=== PATIENT | male | born 1940 | race Caucasian/White ===

== ENCOUNTER 2017-01-07 11:00 | Inpatient (IN) | payer MEDICARE, BC ==
[~2017-01-07] VITALS: Ht 182.9 cm; Wt 102.5 kg
--- NOTE | ~2017-01-07 | DS ---
PATIENT'S NAME: MATIAS ARCE [facility] AGE: 76 Y [address] ROOM: [place] [address] LOCATION: N ADMIT DATE: 01/21/2017 Discharge Summary DISCHARGE DATE: 01/23/2017 FAMILY PHYSICIAN: Yan Oneal MD ATTENDING PHYSICIAN: Sergei Segovia PRIMARY DIAGNOSIS: Degenerative joint disease of the left knee. SECONDARY DIAGNOSIS: 1. History of deep venous thrombosis. 2. Hyperlipidemia. 3. Hyperthyroidism. 4. Benign prostatic hypertrophy. 5. Hypertension. PROCEDURE PERFORMED: Left total knee arthroplasty. HISTORY: The patient is a 76-year-old male, who presents with advanced left knee degenerative joint disease and associated severely compromised activities of daily living. The patient has decided to proceed with total knee arthroplasty after having been thoroughly counseled regarding the risks, benefits, limitations and alternatives. Please refer to the outpatient clinic notes and admission history and physical for this patient. HOSPITAL COURSE: The patient underwent a left total knee arthroplasty on 01/21/2017 without complications. Spinal anesthesia plus adductor canal block plus periarticular local anesthesia was utilized. The patient received 24 hours of perioperative prophylactic antibiotics and remained hemodynamically stable, neurovascularly intact throughout the entire hospital course. The postoperative prophylactic deep venous thrombosis prophylaxis consisted of Xarelto, early mobilization and pneumatic compression devices. Daily physical therapy for gait training, transfer training range of motion and quadriceps isometric exercises were received. The patient progressed well in physical therapy. On the date of discharge, 01/23/2017, the incision at the knee was healing well and showed no signs of infection. DISPOSITION: Home. DISCHARGE ACTIVITY: The patient is to bear weight as tolerated with range of motion and quadriceps isometric exercises as instructed. The operative extremity is to be elevated at least 90% of the day. There is to be sterile 4x4 gauze dressings to the incision daily. Dr. Segovia is to be notified immediately if there is any increased pain, fevers, chills erythema or drainage. PATIENT'S NAME: MATIAS ARCE [facility] AGE: 76 Y [address] ROOM: [place] [address] LOCATION: G3N ADMIT DATE: 01/21/2017 Discharge Summary DISCHARGE DATE: 01/23/2017 FAMILY PHYSICIAN: Yan Oneal MD ATTENDING PHYSICIAN: Sergei Segovia DISCHARGE MEDICATIONS: 1. Xarelto 10 mg 1 tablet p.o. daily x30 days for postoperative DVT prophylaxis and previous history DVT. 2. Hydromorphone 2 mg 1 to 2 tablets p.o. every 4 hours p.r.n. for pain. 3. Celebrex 200 mg 1 tab p.o. every day x7 days for pain. 4. Gabapentin 300 mg 1 tab p.o. every night x7 days for pain. 5. He is then instructed to continue all his other preadmission medications as instructed by his internal medicine doctor. FOLLOWUP: Followup appointment is to be with Dr. Segovia's office on 01/28/2017 for initial postoperative evaluation with x-rays of left knee and staple removal. RADHA ISLAS PA-C FOR MD ALPESH HAMMOND/grecial /[id number] d: 02/04/17 1054 t: 02/04/17 1120, DISCHARGE SUMMARY
--- NOTE | ~2017-01-07 | OR ---
PATIENT'S NAME: MATIAS SEGURA [facility] AGE: 76 Y [address] ROOM: [place] [address] LOCATION: [facility] ADMIT DATE: 01/21/2017 OR/Procedure Report DISCHARGE DATE: FAMILY PHYSICIAN: ANAMARIA SCHULTE MD ATTENDING PHYSICIAN: JESSICA BERRY SURGEON: Jessica Berry MD PUNCH PRESS OPERATOR: 1. MILO Odell. 2. Jessica Hernandez. DATE OF PROCEDURE: 01/21/2017 PREOPERATIVE DIAGNOSIS: Degenerative joint disease, left knee. POSTOPERATIVE DIAGNOSIS: Degenerative joint disease, left knee. OPERATION: Left total knee arthroplasty with computer navigation. ANESTHESIA: Spinal anesthesia plus adductor canal block plus periarticular local anesthesia (ropivacaine with epinephrine and Toradol). ESTIMATED BLOOD LOSS: Less than 10 mL. DRAIN: None. SPECIMEN: None. COMPLICATIONS: None. IMPLANT SYSTEM: [place] Triathlon. 1. Size 7 left posterior stabilized femoral component. 2. Size 6 universal modular tibial baseplate. 3. An 11 mm posterior stabilized size 6 X3 tibial polyethylene insert. 4. A 35 mm oval X3 patella component. INDICATIONS FOR SURGERY: Mr. Matias Segura is a 76-year-old male who presents with advanced left knee degenerative joint disease and associated severely compromised activities of daily living. The patient has decided to proceed with knee replacement after having been thoroughly counseled regarding the associated risks, benefits, and limitations. We have specifically reviewed the risks and implications of infection, deep venous thrombosis, pulmonary embolism, mortality, neurovascular complications, blood transfusion (and associated potential for disease transmission or transfusion reaction), stiffness, instability, mechanical deterioration of the components (due to wear and or loosening), and the potential need for revision. We have also emphasized the importance of active involvement and compliance with post- operative physical therapy as a means of optimizing range of motion and PATIENT'S NAME: MATIAS SEGURA [facility] AGE: 76 Y [address] ROOM: [place] [address] LOCATION: [facility] ADMIT DATE: 01/21/2017 OR/Procedure Report DISCHARGE DATE: FAMILY PHYSICIAN: ANAMARIA SCHULTE MD ATTENDING PHYSICIAN: JESSICA BERRY functional recovery. Informed consent has been granted. DESCRIPTION OF PROCEDURE: The patient was positioned supine after administration of anesthesia and prophylactic antibiotics. A well-padded pneumatic tourniquet was placed around the left proximal thigh, and the left lower extremity was prepped and draped with vigilant sterile technique. The patient's name as well as the intended operative side and procedure were confirmed with a verbal time-out involving myself, the circulating nurse, the scrub nurse, and the anesthesiologist. Examination under anesthesia demonstrated a large effusion. There were no active skin lesions or masses. There was no erythema. There was no abnormal warmth. There were no significant preexisting scars. Range of motion under anesthesia was from a 10 degree flexion contracture to 125 degrees of flexion. There was no ligamentous insufficiency. The left lower extremity was elevated and exsanguinated with an Esmarch wrap, and the pneumatic tourniquet was inflated to 300mmHg. The knee was approached through a longitudinal midline incision. A medial parapatellar arthrotomy was performed and the patella was everted. Examination of the joint space demonstrated a large effusion consisting of benign-appearing translucent synovial fluid. There were no loose bodies. There was no synovitis. The cruciate ligaments were intact. There was full-thickness loss of articular cartilage throughout the medial femoral condyle and the majority of the medial tibial plateau. There were large osteophytes at the medial femoral condyle and medial tibial plateau. There was a small osteophyte at the lateral femoral condyle. There were mild grade 3 degenerative changes at the medial half of the lateral tibial plateau and deep fissuring at the medial aspect of the lateral tibial plateau. There was a small osteophyte at the lateral tibial plateau. There was a large osteophyte at the medial aspect of the femoral trochlea. There was a 1 cm diameter region of full-thickness articular cartilage loss at the superior aspect of the femoral trochlea. There was a 1 cm region of full-thickness articular cartilage loss at the apex of the patella. There were moderate-sized osteophytes at the superior and inferior margins of the patella. There was moderate inner perimeter tearing at the medial meniscus. There was mild inner perimeter tearing at the lateral meniscus. Remnants of the menisci and cruciate ligaments were excised. The [employer] navigation femoral tracker was pinned in place at the distal aspect of the femoral trochlea. Absence of motion between the femur and the tracking device was confirmed manually and visually. Femoral osseous landmarks were obtained in order to calibrate the computer navigation system. Landmarks included the center of rotation of the ipsilateral hip, the center-point of PATIENT'S NAME: MATIAS SEGURA [facility] AGE: 76 Y [address] ROOM: [id number] [place], [place] [address] LOCATION: [facility] ADMIT DATE: 01/21/2017 OR/Procedure Report DISCHARGE DATE: FAMILY PHYSICIAN: ANAMARIA SCHULTE MD ATTENDING PHYSICIAN: JESSICA BERRY the distal femur, the femoral AP axis, 57 points on the medial femoral condyle articular surface, and 57 points on the lateral femoral condyle articular surface. The [employer] computer navigation system was subsequently utilized to position the distal femoral resection block such that the distal femoral resection was performed perfectly perpendicular to the femoral mechanical axis. The distal femoral resection was performed with a [employer] oscillating saw. The [employer] computer navigation tibial tracker was pinned in place at the anterior aspect of the tibial plateau. Absence of motion between the tibia and the tracking device was confirmed manually and visually. Tibial osseous landmarks were obtained in order to calibrate the computer navigation system. Landmarks included the center-point of the tibial plateau, the AP tibial axis, 57 points on the medial tibial plateau articular surface, 57 points on the lateral tibial plateau articular surface, the medial malleolus, and the lateral malleolus. The [employer] computer navigation system was subsequently utilized to position the proximal tibial resection block such that the proximal tibial resection was performed perfectly perpendicular to the tibial mechanical axis. The proximal tibial resection was performed with a [employer] Precision oscillating saw. Perpendicularity of the tibial resection with respect to the tibial shaft axis was reconfirmed by inserting a spacer- block attached to an extramedullary guide milind. External rotation of the anterior and posterior femoral resections was set parallel to the epicondylar axis and carefully adjusted in order to create a rectangular flexion gap. The box resection was performed with a reciprocating saw. Anterior and posterior chamfer resections were performed with the oscillating saw. Posterior condyle osteophytes were excised with an osteotome. All other osteophytes were excised with a rongeur. Resection of all remnants of the menisci was reconfirmed. Flexion and extension gaps were confirmed to be symmetric and well balanced with a spacer-block technique. The patella resection was performed with an oscillating saw such that the composite thickness of the reconstructed patella was equivalent to the thickness of the nez perce patella. Patella tracking was optimal, and there was no need for a lateral retinacular release. All trial components were removed and all prepared osseous surfaces were thoroughly irrigated with pulsatile saline lavage and dried prior to cementing all three components in a single stage using [place] Simplex cement containing pre-mixed tobramycin. All extruded excess cement was removed. The entire joint space was thoroughly inspected and thoroughly irrigated with bacteriostatic pulsatile saline lavage to assure that there was no residual debris of any sort. PATIENT'S NAME: MATIAS SEGURA [facility] AGE: 76 Y [address] ROOM: [place] [address] LOCATION: [facility] ADMIT DATE: 01/21/2017 OR/Procedure Report DISCHARGE DATE: FAMILY PHYSICIAN: ANAMARIA SCHULTE MD ATTENDING PHYSICIAN: JESSICA BERRY Final range of motion was from full extension (with no passive hyperextension) to 130 degrees of flexion. Patella tracking was reconfirmed to be optimal. There was excellent anteroposterior stability at 90 degrees of flexion. There was 0 mm of medial lift-off to valgus stress in full extension. There was less than 1 mm of lateral lift-off to varus stress in full extension. The arthrotomy was closed with multiple simple and [id number] interrupted #1 Vicryl. Subcutaneous tissues were thoroughly re-irrigated with bacteriostatic pulsatile saline lavage. Subcutaneous tissues were re- approximated with simple buried interrupted #0 Vicryl sutures. The skin was closed with simple buried interrupted 2-0 Vicryl sutures followed by surgical michael. The dressing consisted of Xeroform gauze, 4x4 gauze, ABD pads and two 6-inch Miguel Wraps. There were no intra-operative complications. MD MARSHALL HAMMOND/grecial /[id number] d: 01/22/17 1206 t: 01/29/17 2104, OPERATIVE SUMMARY
[~2017-01-07 11:00] MED LIST: ASPIRIN LO-DOSE81 MG PO; FLOMAX0.4 MG PO; FOSINOPRIL SODI20 MG PO; LEVOTHYROXINE125 MCG PO; LIPITOR40 MG PO; NITROSTAT0.4 MG SL; PRESERVISION L1 EACH PO; TYLENOL EXTRA500 MG PO; ULTRAM50 MG PO
--- NOTE | 2017-01-21 15:30 | NUR ---
Introduced self/role to patient and . In preop class, patient reports he lives in [place] with spouse. Has 3 steps to get in home that has railings on both sides. Has walker, cne, elevated toilet and walk in shower. Reviewed purpose and encouraged use of Incentive Spirometer. Verbalizes understanding. Has foot pumps on bilat, able to move feet up and down. Will follow and assist as need identified.
--- NOTE | 2017-01-21 16:44 | NUR ---
sSignificant Event: Received from PACU at 1430. 3rd hourly at 1915. Full sensation. Up in recliner with PT. Dressing dry and intact. CSM WNL. O2 at 2L per nasal cannula. Midline IV to rt upper arm. Follow up:
--- NOTE | 2017-01-22 04:22 | NUR ---
Patient alert and oriented x3, very pleasant and cooperative, slightly hard of hearing, dressing is clean dry and intact, ice in place to knee, pain has been well controled with oral diluadid, transfering well one assist with the walker, last antibitotic given at 0300, rested some tonight
--- NOTE | 2017-01-22 10:52 | NUR ---
[id number] [facility] Student Nurse, Monitored assessment, documentation and medication administration
--- NOTE | 2017-01-22 10:54 | NUR ---
CARED FOR PATIENT FROM [address]. AMBULATES TO THE BATHROOM WITH 1 ASSIST. GAIT STEADY. DRESSING TO KNEE C/D/I. CSM WNL. VERY MASHPEE. VERY COOPERATIVE WITH CARES.
--- NOTE | 2017-01-22 13:40 | NUR ---
1710 Introduced self/role to patient and his , also present Jerica BARNES Slot Machine Floor Person. He plans to return home here in [place], has a walker, stool riser. No other DME needed. His will be around to assist him. No needs or concerns. Added my name to his marker board, will continue to follow.
--- NOTE | 2017-01-22 16:52 | NUR ---
Significant Event: charly dressing c/d/i. csm assessments wnl. ez wrap to l) knee. bilateral knee high emma hose on and foot pumps on. ambulates to bathroom and up to chair with 1 assist, use of walker/gait belt. pain well controlled with dilaudid 1 tab given last at 1515 and routine tylenol extra strength. midline iv to r) upper arm. pleasant and cooperative with cares. incentive spirometer encouraged, up to 1999. Follow up:
--- NOTE | 2017-01-23 04:43 | NUR ---
Significant Event: Pt alert and oriented. Did get a bit forgetful over night. Slept well. Doesn't like to call for help. Ambulated himself to the BR. Alarms on at all times. Pt wants to be independent and he does walk well with his walker. Pain controlled with dilaudid and tylenol. Gave toradol and valium at HS for pain of 6/10. Denied pain at 0200. Will premedicate for the am. Follow up:
[2017-01-23] MEDS ORDERED: NEURONTIN300 MG PO (09:19)
[2017-01-23] MEDS ORDERED: COLACE100 MG PO (09:19)
[2017-01-23] MEDS ORDERED: MIRALAX17 GM PO (09:20)
[2017-01-23] MEDS ORDERED: DILAUDID 2MG(HYD2 MG PO (09:21)
[2017-01-23] MEDS ORDERED: XARELTO10 MG PO (09:21)
[2017-01-23] MEDS ORDERED: CELEBREX200 MG PO (09:22)
--- NOTE | 2017-01-23 10:32 | NUR ---
[id number] [facility] Student Nurse, monitored assessment, medication administration and documentation
[2017-01-23] MEDS ORDERED: PSYLLIUM HUSK1 GM PO (13:24)
--- NOTE | 2017-01-23 14:59 | NUR ---
Pt and both verbalize understanding of all instructions. Reviewed all medications, care of incision, s/s infection, when to call the dr, care of dressing, s/s dvt, refer to discharge instructions for further details. All belongings sent with patient. EZ wraps and dressing sent home with patient. To front door per transport and w/c.
== END 2017-01-23 14:40 | disposition disaster alternative care site (69) | DRG 470 ==
LOC: G3N 01-21 07:09
PROVIDERS: ADMIT Orthopaedic Surgery
PROC: 0SRD0J9 Replacement of Left Knee Joint with Synthetic Substitute, Cemented, Open Approach (ICD-10-PCS; principal; 2017-01-22)
DX: M17.12 Unilateral primary osteoarthritis, left knee (principal); I10 Essential (primary) hypertension; Z87.891 Personal history of nicotine dependence; Z86.718 Personal history of other venous thrombosis and embolism; Z79.01 Long term (current) use of anticoagulants; N40.0 Benign prostatic hyperplasia without lower urinary tract symptoms; I25.10 Atherosclerotic heart disease of native coronary artery without angina pectoris; E03.9 Hypothyroidism, unspecified; E78.5 Hyperlipidemia, unspecified
CPT/HCPCS: C1713; C1751; C1776; J1100; J1885; J2001; J2250; J2795; J7120

== ENCOUNTER → 2017-01-30 | Outpatient (CLI) | payer MEDICARE, BC ==
[~2017-01-30] MED LIST changes: +CELEBREX200 MG PO; +COLACE100 MG PO; +DILAUDID 2MG(HYD2 MG PO; +MIRALAX17 GM PO; +NEURONTIN300 MG PO; +PSYLLIUM HUSK1 GM PO; +XARELTO10 MG PO
--- NOTE | ~2017-01-30 | ENPV ---
Vascular Lower Extremities DVT Study Procedure Demographics Patient Name MATIAS ARCE Date of Study 01/30/2017 Patient Number [id number] Gender Male Date of 1940 Age 76 Visit Number [id number] Height Accession Number [id number] Weight Room Number BSA BMI Referring Luca Shafer MD Interpreting Av Worley MD Physician Kimmy Bourne MD Physician Physician Ordering Physician Luca Shafer MD Compounding Scaler Director Customer [facility] Anibal Turner Conclusions Summary No evidence of deep vein thrombosis or superficial thrombophlebitis in the left lower extremity . Procedure Type of Study: Veins:Lower Extremities DVT Study, Lower Extremity Left. Indications for Study:Swelling of Limb and Pain in Limb. Appropriate Use Criteria:9 Patient Status:Routine. Study Location:Vascular Lab. Technical Quality:Adequate visualization. - Preliminary reported to:Dr. Segovia's Nurse. Velocities are measured in cm/s ; Diameters are measured in cm Right Lower Extremities DVT Study Measurements Right 2D and Doppler Measurements + + + + +------+------+ + !Location !Visualized!Compressibility!Thrombosis!Signal!Reflux!Reflux ! ! ! ! ! ! ! !(sec) ! + + + + +------+------+ + !Common !Yes !Yes !None !Phasic! ! ! !Femoral ! ! ! ! ! ! ! + + + + +------+------+ + Left Lower Extremities DVT Study Measurements Left 2D and Doppler Measurements + + + + +------+------+ + !Location !Visualized!Compressibility!Thrombosis!Signal!Reflux!Reflux ! ! ! ! ! ! ! !(sec) ! + + + + +------+------+ + !GSV Thigh !Yes !Yes !None !Phasic! ! ! + + + + +------+------+ + !Common !Yes !Yes !None !Phasic! ! ! !Femoral ! ! ! ! ! ! ! + + + + +------+------+ + !Prox !Yes !Yes !None !Phasic! ! ! !Femoral ! ! ! ! ! ! ! + + + + +------+------+ + !Mid Femoral!Yes !Yes !None !Phasic! ! ! + + + + +------+------+ + !Dist !Yes !Yes !None !Phasic! ! ! !Femoral ! ! ! ! ! ! ! + + + + +------+------+ + !Popliteal !Yes !Yes !None !Phasic! ! ! + + + + +------+------+ + !Gastroc !Yes !Yes !None ! ! ! ! + + + + +------+------+ + !PTV !Yes !Yes !None ! ! ! ! + + + + +------+------+ + !Peroneal !Yes !Yes !None ! ! ! ! + + + + +------+------+ + Signature dtt: VASILE STRICKLAND dtd: 01/30/17 1530 Physician Self Edit
== END | disposition disaster alternative care site (69) ==
LOC: GCAR 15:20
DX: M79.605 Pain in left leg (principal); M79.89 Other specified soft tissue disorders; L53.9 Erythematous condition, unspecified; Z96.652 Presence of left artificial knee joint

== ENCOUNTER → 2017-04-16 | Outpatient (CLI) | payer MEDICARE, BC | END | disposition disaster alternative care site (69) | LOC: GRAD 10:01 | DX: N63 Unspecified lump in breast (principal); N64.89 Other specified disorders of breast ==

== ENCOUNTER → 2017-04-18 | Outpatient (CLI) | payer MEDICARE, BC | END | disposition disaster alternative care site (69) | LOC: GBCOE 13:42 | DX: N63 Unspecified lump in breast (principal); N62 Hypertrophy of breast | CPT/HCPCS: G0204; G0279 ==